=== PATIENT | female | born 1990 | race Caucasian/White ===

== ENCOUNTER 2024-04-20 08:53 | Day surgery (SDC) | payer BC ==
[~2024-04-20] VITALS: Ht 165.1 cm; Wt 78.8 kg
[~2024-04-20 08:53] MED LIST: BIOT10TA2 PO; BUPR-71 PO; FAMO1TAB11 PO; METH-855 PO; NALT50TA4 PO; PROP40TA62 PO; SAXE1INJ; VITA500C24 PO
[2024-04-20] MEDS ORDERED: LR 1,000 ML IV SCH (09:30)
[2024-04-20] MEDS ORDERED: ONDANSETRON 4MG 2ML VIAL As Ordered ONE (10:22)
[2024-04-20] MEDS ORDERED: propofoL 200 MG/20 ML VIAL As Ordered ONE (10:22)
[2024-04-20] MEDS ORDERED: LIDOCAINE 2% 100MG/5ML SDV (FOR ANES.) As Ordered ONE (10:22)
[2024-04-20] MEDS: ceFAZolin SOD 2 GM in IV 1 EA IV ONE (10:53)
[2024-04-20 12:17] VITALS: BP 148/84; TEMP 97.9; O2SAT 99
== END 2024-04-20 12:29 | disposition home or self-care (01) ==
LOC: M SDC 08:53
PROVIDERS: ATTEND Urology
DX: N20.0 Calculus of kidney (principal); I10 Essential (primary) hypertension; E04.1 Nontoxic single thyroid nodule; K21.9 Gastro-esophageal reflux disease without esophagitis; F41.9 Anxiety disorder, unspecified; F32.A Depression, unspecified; Z79.899 Other long term (current) drug therapy
CPT/HCPCS: 50590; 74018; 81025; J0690; J2405

== ENCOUNTER → 2024-05-11 | Outpatient (CLI) | payer BC | LOC: M RAD 11:36 | PROVIDERS: ATTEND Urology | DX: N20.0 Calculus of kidney (principal) ==